=== PATIENT | female | born 1955 | race Two or more races ===

== ENCOUNTER 2021-10-09 00:12 | Inpatient (IN) | payer OTHER ==
[~2021-10-09] VITALS: Ht 160 cm; Wt 71.4 kg
[2021-10-09 01:12] LABS: Basophils # (auto) 0.1 10 ^3/uL (0-0.2); Basophils % (auto) 1.3 % (0.0-2.0); Eosinophils # (auto) 0.2 10 ^3/uL (0-0.8); Eosinophils % (auto) 2.5 % (0.0-7.0); Hemoglobin 9.5 g/dL (12.2-16.2); Lymphocytes % (auto) 11.8 % (10.0-50.0); Mean Corpuscular Hemoglobin 27.7 pg (28.0-32.0); Mean Corpuscular Hgb Conc. 32.8 g/dL (32.0-36.0); Mean Corpuscular Volume 84.4 fL (80.0-100.0); Monocytes # (auto) 0.6 10 ^3/uL (0-1.3); Monocytes % (auto) 6.8 % (0.0-12.0); Neutrophils # (auto) 6.8 10 ^3/uL (1.6-8.6); Neutrophils % (auto) 77.6 % (37.0-80.0); Red Blood Cells 3.43 10^6/uL (4.0-5.20); White Blood Cell 8.8 10^3/uL (4.4-10.8)
[2021-10-09] MEDS ORDERED: hydrALAZINE HCL 20 MG/ML VL IV ONE (01:15)
[2021-10-09 01:25] LABS: Albumin 2.6 g/dL (3.4-5.0); Calcium 8.1 mg/dL (8.5-10.1); Potassium 4.1 mmol/L (3.5-5.1)
[2021-10-09 01:30] LABS: Bilirubin, Total 0.3 mg/dL (0.2-1.0); Total Protein 7.6 g/dL (6.4-8.2)
[2021-10-09] MEDS ORDERED: methylPREDNISolone SOD SUCC 125 MG/2 ML VL ONE (02:38)
[2021-10-09] MEDS ORDERED: ALBUTEROL SULF 2.5 MG/0.5ML(0.5%) NEB SOLN NEB ONE (02:45)
[2021-10-09] MEDS ORDERED: IPRATROPIUM BROM 0.5 MG/2.5ML INH SOL NEB ONE (02:45)
[2021-10-09] MEDS ORDERED: HYDROCORTISONE SOD SUCC 100 MG/2ML INJ VIAL IV ONE (03:00)
[2021-10-09] MEDS ORDERED: FUROSEMIDE 40 MG/4 ML VIAL IV ONE (03:00)
[2021-10-09] MEDS ORDERED: ENOXAPARIN SOD 80 MG/0.8ML SYRINGE SC ONE (03:30)
[2021-10-09] MEDS ORDERED: MORPHINE SULFATE INJECTION 2 MG/ML SYRG IV ONE (03:45)
[2021-10-09] MEDS ORDERED: ONDANSETRON HCL 4 MG/2 ML VIAL IV ONE (03:45)
[2021-10-09 04:08] LABS: Urine Bacteria FEW /hpf (None Seen); Urine Blood TRACE /uL (Negative); Urine Hyaline Cast FEW /lpf (0 - 2); Urine Specific Gravity 1.009 (1.001-1.035); Urine WBC 7 /hpf (0 - 5)
[2021-10-09] MEDS ORDERED: DEXTROSE (50%) 50ML SYRG IV PRN (05:15)
[2021-10-09] MEDS ORDERED: TEMAZEPAM 15 MG CAP PO PRN (05:15)
[2021-10-09] MEDS ORDERED: ONDANSETRON HCL 4 MG/2 ML VIAL IV PRN (05:15)
[2021-10-09] MEDS ORDERED: NITROGLYCERIN 0.4 MG SL TAB SL PRN (05:15)
[2021-10-09] MEDS ORDERED: ACETAMINOPHEN 325 MG TAB PO PRN (05:15)
[2021-10-09] MEDS ORDERED: MORPHINE SULFATE INJECTION 2 MG/ML SYRG IV PRN (05:15)
[2021-10-09] MEDS: ACCU-CHEK COMFORT CURVE STRIP VI SCH ×4 (06:09→21:41)
[2021-10-09] MEDS: InsuLIN REG 1unit/0.01ml Soln (100units/ml) SC SCH ×4 (06:16→22:40)
[2021-10-09] MEDS: FUROSEMIDE 20 MG/2 ML VIAL IV SCH ×2 (06:17→18:29)
[2021-10-09] MEDS: hydrALAZINE HCL 10 MG TAB PO SCH ×3 (06:18→21:41)
[2021-10-09] MEDS ORDERED: LISINOPRIL 20 MG TAB PO SCH (10:00)
[2021-10-09] MEDS ORDERED: ENOXAPARIN SOD 40 MG/0.4 ML SYRINGE SC SCH (10:00)
[2021-10-09 10:41] VITALS: BP 135/63
[2021-10-09] MEDS: ASPirin 81 mg TAB PO SCH (11:44)
[2021-10-09] MEDS: CARVEDILOL 12.5 MG TAB PO SCH ×2 (11:45→21:41)
[2021-10-09 12:38] LABS: Basophils # (auto) 0 10 ^3/uL (0-0.2); Basophils % (auto) 0.1 % (0.0-2.0); Eosinophils # (auto) 0 10 ^3/uL (0-0.8); Hematocrit 30.5 % (36.0-46.0); Hemoglobin 10.1 g/dL (12.2-16.2); Lymphocytes # (auto) 0.6 10 ^3/uL (0.4-5.4); Lymphocytes % (auto) 9.6 % (10.0-50.0); Mean Corpuscular Hemoglobin 27.2 pg (28.0-32.0); Mean Corpuscular Hgb Conc. 32.9 g/dL (32.0-36.0); Mean Corpuscular Volume 82.7 fL (80.0-100.0); Monocytes # (auto) 0.1 10 ^3/uL (0-1.3); Monocytes % (auto) 1.6 % (0.0-12.0); Neutrophils # (auto) 5.6 10 ^3/uL (1.6-8.6); Neutrophils % (auto) 88.7 % (37.0-80.0); Red Blood Cells 3.69 10^6/uL (4.0-5.20); Red Cell Distribution Width 15.3 % (11.8-14.3); White Blood Cell 6.3 10^3/uL (4.4-10.8)
[2021-10-09 13:11] VITALS: BP 146/68
[2021-10-09 14:38] LABS: INR 1.05 (0.9-1.15); Partial Thromboplastin Time 35.4 sec (23.6-33.0)
[2021-10-09] MEDS: HEPARIN DRIP/D5W 100UNITS/ML 250 ML IV SCH (15:20)
[2021-10-09 16:38] LABS: Cholesterol 117 mg/dL (< 200); HDL Cholesterol 31 mg/dL (40-59); LDL Cholesterol 74 mg/dL (< 100); Triglycerides 54 mg/dL (< 150)
[2021-10-09 16:45] VITALS: BP 155/70
[2021-10-09 20:00] VITALS: BP 143/76
[2021-10-09 20:33] LABS: INR 1.11 (0.9-1.15); Partial Thromboplastin Time 57.9 sec (23.6-33.0)
[2021-10-09] MEDS: ATORVASTATIN 20 MG TAB PO SCH (21:40)
[2021-10-09 22:00] VITALS: BP 143/76
[2021-10-10 03:16] LABS: INR 1.09 (0.9-1.15)
[2021-10-10 05:39] LABS: Basophils # (auto) 0 10 ^3/uL (0-0.2); Basophils % (auto) 0.1 % (0.0-2.0); Eosinophils # (auto) 0 10 ^3/uL (0-0.8); Hematocrit 25.5 % (36.0-46.0); Hemoglobin 8.5 g/dL (12.2-16.2); Lymphocytes # (auto) 0.9 10 ^3/uL (0.4-5.4); Lymphocytes % (auto) 12.8 % (10.0-50.0); Mean Corpuscular Hemoglobin 27.9 pg (28.0-32.0); Mean Corpuscular Hgb Conc. 33.2 g/dL (32.0-36.0); Mean Corpuscular Volume 83.9 fL (80.0-100.0); Monocytes # (auto) 0.8 10 ^3/uL (0-1.3); Monocytes % (auto) 10.8 % (0.0-12.0); Neutrophils # (auto) 5.6 10 ^3/uL (1.6-8.6); Neutrophils % (auto) 76.3 % (37.0-80.0); Red Blood Cells 3.04 10^6/uL (4.0-5.20); Red Cell Distribution Width 14.8 % (11.8-14.3); White Blood Cell 7.4 10^3/uL (4.4-10.8)
[2021-10-10] MEDS: PANTOPRAZOLE 40 MG TAB PO SCH (05:49)
[2021-10-10] MEDS: hydrALAZINE HCL 10 MG TAB PO SCH ×3 (05:49→22:28)
[2021-10-10] MEDS: FUROSEMIDE 20 MG/2 ML VIAL IV SCH (05:50)
[2021-10-10] MEDS: ACCU-CHEK COMFORT CURVE STRIP VI SCH ×4 (05:50→22:29)
[2021-10-10] MEDS: InsuLIN REG 1unit/0.01ml Soln (100units/ml) SC SCH ×4 (06:31→22:43)
[2021-10-10 07:06] LABS: Anion Gap 13 (5-15); Carbon Dioxide 22 mmol/L (21-32); Chloride 96 mmol/L (98-107); Potassium 4.8 mmol/L (3.5-5.1); Sodium 131 mmol/L (136-145)
[2021-10-10 07:07] LABS: Alanine Aminotransferase 17 U/L (13-56); Albumin 2.3 g/dL (3.4-5.0); Alkaline Phosphatase 79 U/L (45-117); Aspartate Aminotransferase 18 U/L (15-37); BUN/Creatinine Ratio 19.9; Bilirubin, Total 0.4 mg/dL (0.2-1.0); Blood Urea Nitrogen 46 mg/dL (7-18); Calcium 7.9 mg/dL (8.5-10.1); GFR African American 27 mL/min; GFR Non-African American 23 mL/min; Glucose 271 mg/dL (74-106); Magnesium 2.6 mg/dL (1.6-2.6); Total Protein 6.2 g/dL (6.4-8.2)
[2021-10-10 09:00] VITALS: BP 124/45
[2021-10-10 09:38] LABS: INR 1.05 (0.9-1.15)
[2021-10-10] MEDS: ASPirin 81 mg TAB PO SCH (10:27)
[2021-10-10] MEDS: CARVEDILOL 12.5 MG TAB PO SCH ×2 (10:28→22:29)
[2021-10-10 10:35] LABS: Partial Thromboplastin Time 71.4 sec (23.6-33.0)
[2021-10-10 13:00] VITALS: BP 114/61
[2021-10-10 17:00] VITALS: BP 125/47
[2021-10-10] MEDS: HEPARIN DRIP/D5W 100UNITS/ML 250 ML IV SCH (17:18)
[2021-10-10 21:45] VITALS: BP 114/42
[2021-10-10] MEDS: ATORVASTATIN 20 MG TAB PO SCH (22:29)
[2021-10-11] VITALS (9 sets, daily range): BP systolic 98–145; BP diastolic 47–90
[2021-10-11] MEDS ORDERED: INSUINJ2 SC (01:39)
[2021-10-11] MEDS: hydrALAZINE HCL 10 MG TAB PO SCH ×3 (06:25→22:35)
[2021-10-11] MEDS: PANTOPRAZOLE 40 MG TAB PO SCH (06:26)
[2021-10-11] MEDS: ACCU-CHEK COMFORT CURVE STRIP VI SCH ×4 (06:46→22:24)
[2021-10-11] MEDS: InsuLIN REG 1unit/0.01ml Soln (100units/ml) SC SCH ×4 (06:53→22:26)
[2021-10-11] MEDS ORDERED: ATOR-47 PO (08:22)
[2021-10-11] MEDS ORDERED: HYDR10TA26 PO (08:22)
[2021-10-11] MEDS ORDERED: LISI40TA11 PO (08:22)
[2021-10-11] MEDS ORDERED: ASPI1TAB20 PO (08:22)
[2021-10-11] MEDS ORDERED: CARV25TA55 PO (08:22)
[2021-10-11] MEDS ORDERED: IODIXANOL 320MG/ML 100ML BTL IV ONE ×2 (09:07→09:52)
[2021-10-11] MEDS ORDERED: LIDOCAINE 2%HCL (LOCAL ANESTH.) INJ 20ML MDV ONE (09:07)
[2021-10-11 09:23] LABS: INR 1.02 (0.9-1.15); Partial Thromboplastin Time 67.5 sec (23.6-33.0)
[2021-10-11] MEDS ORDERED: fentaNYL CITRATE 100 MCG/2 ML VL ONE (09:30)
[2021-10-11] MEDS ORDERED: ANGIOMAX 250 MG VIAL IV ONE (09:30)
[2021-10-11] MEDS ORDERED: SODIUM CHL 0.9% 50 ML ONE (09:31)
[2021-10-11] MEDS ORDERED: MIDAZOLAM HCL 2MG/2ML 2ml VIAL (1mg/ml) ONE (09:31)
[2021-10-11] MEDS ORDERED: IOHEXOL 350 MG/ML 100ML IJ ONE (09:42)
[2021-10-11] MEDS: ASPirin 81 mg TAB PO SCH (10:00)
[2021-10-11] MEDS ORDERED: CLOPIDOGREL 300 MG TAB ONE (10:20)
[2021-10-11] MEDS ORDERED: ASPirin 81 mg TAB ONE (10:20)
[2021-10-11 12:08] LABS: BUN/Creatinine Ratio 24.6; Calcium 8.1 mg/dL (8.5-10.1); Potassium 4.6 mmol/L (3.5-5.1)
[2021-10-11] MEDS: CARVEDILOL 12.5 MG TAB PO SCH ×2 (15:15→22:35)
[2021-10-11 18:58] LABS: Creatinine, Urine 35 mg/dL (30.0-125.0); Protein, Urine 99.8 mg/dL (0.0-11.9); Sodium Urine 31 mmol/L (40-220)
[2021-10-11 19:12] LABS: Urine Bacteria MOD /hpf (None Seen); Urine Blood TRACE /uL (Negative); Urine Mucus FEW (None Seen); Urine Specific Gravity 1.018 (1.001-1.035); Urine WBC 96 /hpf (0 - 5); Urine WBC Clumps PRESENT /hpf (None Seen)
[2021-10-11] MEDS: ATORVASTATIN 20 MG TAB PO SCH (22:36)
[2021-10-12 03:36] LABS: Urine Bacteria MOD /hpf (None Seen); Urine Blood TRACE /uL (Negative); Urine WBC 25 /hpf (0 - 5)
[2021-10-12 05:00] VITALS: BP 131/57
[2021-10-12 05:18] LABS: Basophils # (auto) 0 10 ^3/uL (0-0.2); Basophils % (auto) 0.3 % (0.0-2.0); Eosinophils # (auto) 0.2 10 ^3/uL (0-0.8); Hemoglobin 8.2 g/dL (12.2-16.2); Lymphocytes # (auto) 1.3 10 ^3/uL (0.4-5.4); Monocytes # (auto) 0.8 10 ^3/uL (0-1.3); Monocytes % (auto) 12.1 % (0.0-12.0); Neutrophils # (auto) 4.5 10 ^3/uL (1.6-8.6); Red Blood Cells 2.94 10^6/uL (4.0-5.20)
[2021-10-12 05:19] LABS: Eosinophils % (auto) 2.5 % (0.0-7.0); Hematocrit 24.7 % (36.0-46.0); Lymphocytes % (auto) 18.5 % (10.0-50.0); Mean Corpuscular Hemoglobin 27.7 pg (28.0-32.0); Mean Corpuscular Volume 84.1 fL (80.0-100.0); Neutrophils % (auto) 66.6 % (37.0-80.0); Red Cell Distribution Width 15.3 % (11.8-14.3); White Blood Cell 6.8 10^3/uL (4.4-10.8)
[2021-10-12 05:52] LABS: Potassium 4.8 mmol/L (3.5-5.1)
[2021-10-12] MEDS: ACCU-CHEK COMFORT CURVE STRIP VI SCH ×2 (05:52→12:06)
[2021-10-12 05:56] LABS: BUN/Creatinine Ratio 22.4; Calcium 7.3 mg/dL (8.5-10.1)
[2021-10-12] MEDS: PANTOPRAZOLE 40 MG TAB PO SCH (06:04)
[2021-10-12] MEDS: hydrALAZINE HCL 10 MG TAB PO SCH ×2 (06:04→14:00)
[2021-10-12] MEDS: InsuLIN REG 1unit/0.01ml Soln (100units/ml) SC SCH ×2 (06:05→12:09)
[2021-10-12 08:00] VITALS: BP 146/62
[2021-10-12] MEDS ORDERED: CLOPIDOGREL BISULFATE 75 MG TAB PO SCH (10:00)
[2021-10-12] MEDS: ASPirin 81 mg TAB PO SCH (10:23)
[2021-10-12] MEDS: CARVEDILOL 12.5 MG TAB PO SCH (10:23)
[2021-10-12] MEDS ORDERED: ATOR-47 PO (11:57)
[2021-10-12] MEDS ORDERED: ERGO1CAP23 PO (11:57)
[2021-10-12] MEDS ORDERED: HYDR10TA26 PO (11:57)
[2021-10-12] MEDS ORDERED: ASPI1TAB20 PO (11:57)
[2021-10-12] MEDS ORDERED: TICA90TA PO (11:57)
[2021-10-12] MEDS ORDERED: CARV25TA55 PO (11:57)
[2021-10-12 12:31] VITALS: BP 179/80
[2021-10-12 13:47] VITALS: BP 146/62
[2021-10-14 13:17] LABS: Hepatitis C Antibody Negative (Negative)
== END 2021-10-12 14:15 | disposition home or self-care (01) | DRG 246 ==
LOC: ER 00:12 → TELE 05:05 → TELE-WESTW 09:36
PROVIDERS: ADMIT Nurse Practitioner; ATTEND Internal Medicine
PROC: 027136Z Dilation of Coronary Artery, Two Arteries with Three Drug-eluting Intraluminal Devices, Percutaneous Approach (ICD-10-PCS; principal; 2021-10-11)
PROC: 4A023N7 Measurement of Cardiac Sampling and Pressure, Left Heart, Percutaneous Approach (ICD-10-PCS; 2021-10-11)
PROC: B211YZZ Fluoroscopy of Multiple Coronary Arteries using Other Contrast (ICD-10-PCS; 2021-10-11)
PROC: B215YZZ Fluoroscopy of Left Heart using Other Contrast (ICD-10-PCS; 2021-10-11)
PROC: 4A033BC Measurement of Arterial Pressure, Coronary, Percutaneous Approach (ICD-10-PCS; 2021-10-11)
DX: I21.4 Non-ST elevation (NSTEMI) myocardial infarction (principal); N17.0 Acute kidney failure with tubular necrosis; I50.31 Acute diastolic (congestive) heart failure; E44.0 Moderate protein-calorie malnutrition; I13.0 Hypertensive heart and chronic kidney disease with heart failure and stage 1 through stage 4 chronic kidney disease, or unspecified chronic kidney disease; I16.0 Hypertensive urgency; N18.9 Chronic kidney disease, unspecified; D63.1 Anemia in chronic kidney disease; E11.22 Type 2 diabetes mellitus with diabetic chronic kidney disease; Z20.822 Contact with and (suspected) exposure to COVID-19; I25.10 Atherosclerotic heart disease of native coronary artery without angina pectoris; Z82.49 Family history of ischemic heart disease and other diseases of the circulatory system; Z68.27 Body mass index [BMI] 27.0-27.9, adult
CPT/HCPCS: 36415; 70450; 71045; 76775; 80048; 80053; 80061; 81001; 82306; 82570; 82962; 83036; 83735; 83880; 83970; 84100; 84156; 84300; 84484; 85025; 85379; 85610; 85730; 86803; 86850; 86900; 86901; 87086; 87088; 87186; 87340; 87426; 92928; 92929; 93005; 93306; 93458; 93571; 94640; 96372; 96374; 96375; 97162; 99152; 99153; 99291; C1874; G0378; J1815; J2250; J2405; Q9967